=== PATIENT | male | born 1975 | race Caucasian/White ===

== ENCOUNTER 2018-10-10 12:03 | Emergency (ER) | payer OTHER ==
[2018-10-10 12:23] VITALS: BP 127/84; PULSE 70; RESP 18; TEMP 98.3; O2SAT 97
[2018-10-10 12:47] LABS: URINE BILIRUBIN NEGATIVE (NEGATIVE); URINE BLOOD 2+ (NEGATIVE); URINE CLARITY Clear (Clear); URINE COLOR Yellow (YELLOW); URINE GLUCOSE (UA) NORMAL (Normal); URINE LEUKOCYTE ESTERASE NEG Leu/uL (Negative); URINE PROTEIN NEGATIVE (NEGATIVE); URINE UROBILINOGEN NORMAL mg/dL (0.2-1.0)
--- NOTE | 2018-10-10 12:56 | C.PDOC ---
History Of Present Illness 43 y/o male with no known pmh presents to ed with one week of urinary frequency with no dysuria or urgency. pt sts his insisted he come to ed to get checked for 'sugar in his blood'. denies penile pain. penile discharge. has no concern for sti. Time Seen by Provider: 10/10/18 12:25 Chief Complaint (Nursing): Male Genitourinary History Per: Patient History/Exam Limitations: no limitations Onset/Duration Of Symptoms: Days (x7) Current Symptoms Are (Timing): Still Present Past Medical History Reviewed: Historical Data, Nursing Documentation, Vital Signs Vital Signs: Last Vital Signs Temp 98.3 F 10/10/18 12:16 Pulse 70 10/10/18 12:16 Resp 18 10/10/18 12:16 BP 127/84 10/10/18 12:16 Pulse Ox 97 10/10/18 12:16 Family History: States: No Known Family Hx - Social History Hx Alcohol Use: No Hx Substance Use: No - Immunization History Hx Tetanus Toxoid Vaccination: No Hx Influenza Vaccination: No Hx Pneumococcal Vaccination: No Review Of Systems Constitutional: Negative for: Other (concern for STI ) Genitourinary: Positive for: Frequency. Negative for: Dysuria, Penile Discharge, Penile Pain, Other (urgency ) Physical Exam - Physical Exam Appears: Non-toxic, No Acute Distress Skin: Warm, Dry Head: Normacephalic Cardiovascular: Rhythm Regular Respiratory: Normal Breath Sounds Gastrointestinal/Abdominal: Bowel Sounds (normal ), Soft, No Tenderness Back: No CVA Tenderness Extremity: Normal ROM (x4) Neurological/Psych: Oriented x3, Normal Speech, Normal Cognition ED Course And Treatment O2 Sat by Pulse Oximetry: 97 (RA) Pulse Ox Interpretation: Normal Medical Decision Making Medical Decision Making: Plans: -- glucose POC -- UA urine sent, no infection however there is some hematuria. pt advised to f/u med clinic for rpt urinalysis. finger stick done, blood glucose 108, no further checking done. Disposition Counseled Patient/Family Regarding: Studies Performed, Diagnosis, Need For Followup - Disposition Referrals: [facility] [Outside] Disposition: HOME/ ROUTINE Disposition Time: 14:08 Condition: GOOD Additional Instructions: Por favor rodger el seguimiento en la clnica mdica; Fisher orina debe ser revisada nuevamente en busca de jeffrey y para un chequeo general. Please follow up in medical clinic; your urine should be checked again for blood and for an overall check up. 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 - Scribe Statement The provider has reviewed the documentation as recorded by the Torres Hernandez Do All medical record entries made by the Naelibisaac were at my direction and personally dictated by me. I have reviewed the chart and agree that the record accurately reflects my personal performance of the history, physical exam, medical decision making, and the department course for this patient. I have also personally directed, reviewed, and agree with the discharge instructions and disposition.
== END 2018-10-10 14:20 | disposition home or self-care (01) ==
LOC: C.ER 12:03
DX: R31.9 Hematuria, unspecified (principal)

== ENCOUNTER 2018-10-30 07:08 | Emergency (ER) | payer OTHER ==
--- NOTE | 2018-10-30 08:19 | C.PDOC ---
History Of Present Illness 43 year old male presents to the ED for evaluation of cold symptoms associated with weakness, generalized body aches, nasal congestion, and dry cough which developed since yesterday. Patient denies high fever, severe headache, lethargy, drooling, dysphagia, dyspnea, CP, SOB, palpitation, nausea, vomiting, diarrhea, sick contacts and recent travel. Ambulatory, not in any apparent distress. Time Seen by Provider: 10/30/18 07:29 Chief Complaint (Nursing): Flu-like Symptoms History Per: Patient History/Exam Limitations: no limitations Onset/Duration Of Symptoms: Hrs Current Symptoms Are (Timing): Still Present Location Of Pain: Diffuse Myalgias Associated Symptoms: Cough, Nasal Congestion. denies: Fever, Chills, Sputum, Nausea, Vomiting, Diarrhea Additional History Per: Patient Past Medical History Reviewed: Historical Data, Nursing Documentation, Vital Signs Vital Signs: Last Vital Signs Temp 98.5 F 10/30/18 07:14 Pulse 95 H 10/30/18 07:14 Resp 20 10/30/18 07:14 BP 124/83 10/30/18 07:14 Pulse Ox 96 10/30/18 07:14 - Medical History PMH: No Chronic Diseases Surgical History: No Surg Hx Family History: States: Unknown Family Hx - Social History Hx Alcohol Use: No Hx Substance Use: No - Immunization History Hx Tetanus Toxoid Vaccination: No Hx Influenza Vaccination: No Hx Pneumococcal Vaccination: No Review Of Systems Constitutional: Positive for: Weakness. Negative for: Fever, Chills ENT: Positive for: Nose Congestion Respiratory: Positive for: Cough. Negative for: Sputum Gastrointestinal: Negative for: Nausea, Vomiting, Diarrhea Musculoskeletal: Positive for: Other (generalized body aches ) Neurological: Positive for: Dizziness Physical Exam - Physical Exam Appears: Well, Non-toxic, No Acute Distress Skin: Normal Color, Warm, Dry, No Rash Head: Normacephalic Eye(s): bilateral: PERRL Ear(s): Bilateral: Normal Nose: No Flaring, Discharge (scant clear B/L) Oral Mucosa: Moist, No Drooling Tongue: Normal Appearing Throat: Erythema (mild B/L), No Exudate, No Drooling Neck: Supple, Other ((-) meningeal sign) Cardiovascular: Rhythm Regular, No Murmur, No JVD Respiratory: No Decreased Breath Sounds, No Accessory Muscle Use, No Stridor, No Wheezing Gastrointestinal/Abdominal: Soft Extremity: Normal ROM, No Deformity Neurological/Psych: Oriented x3, Normal Speech ED Course And Treatment O2 Sat by Pulse Oximetry: 96 (on RA ) Pulse Ox Interpretation: Normal Progress Note: On re-eval, pt is afebrile, hemodynamicaly stable. Non-toxic. Tolerate PO well in ED. Neck: SUpple, (-) meningeal sign. ENT: no acute findings. Lungs: CTA B/L, BS equal B/L ABd: benign, (-) guarding, (-) rebound. Back: (-) CVA tenderness. Pt has clinical findings c/w Influenza-like illness. Pt advised. ref. to F/u with PMD In 2-3 days for re-evaluation. return if any new changes. Disposition Counseled Patient/Family Regarding: Diagnosis, Need For Followup, Rx Given - Disposition Referrals: [facility] at [facility] [Outside] Disposition: HOME/ ROUTINE Disposition Time: 07:55 Condition: STABLE Additional Instructions: Encourage fluid Take medication as prescribed Tylenol and/or Ibuprofen for pain and fever Follow up with PMD in 2-3 days for re-evaluation. Return to ED if any worsening or new changes. 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 - Scribe Statement The provider has reviewed the documentation as recorded by the Scribe All medical record entries made by the Scribe were at my direction and personally dictated by me. I have reviewed the chart and agree that the record accurately reflects my personal performance of the history, physical exam, medical decision making, and the department course for this patient. I have also personally directed, reviewed, and agree with the discharge instructions and disposition.
[2018-10-30 08:28] VITALS: BP 117/75; PULSE 87; RESP 17; TEMP 97.9
[2018-10-30 09:33] VITALS: O2SAT 96
== END 2018-10-30 08:24 | disposition home or self-care (01) ==
LOC: C.ER 07:08
DX: J11.1 Influenza due to unidentified influenza virus with other respiratory manifestations (principal)